=== PATIENT | female | born 1935 | race Caucasian/White ===

== ENCOUNTER → 2017-03-05 | Outpatient (CLI) | payer OTHER ==
[~2017-03-05] VITALS: Ht 152.4 cm; Wt 82.6 kg
[~2017-03-05] MED LIST: ACIPHEX 20 MG T20 MG PO; AMITRIPTYLINE H25 M2 PO; B-122500 MCG SL; CHLORTHALIDONE25 MG PO; CO Q-10100 MG PO; DELZICOL400 M1 PO; K-DUR10 MEQ PO; LEVOTHYROXIN0.125 M1 PO; LIPITOR10 MG PO; MAG6464 MG PO; PREMPRO 0.3 MG1 EACH PO; PROBIOTIC1 EAC1 PO; TELMISARTAN80 MG PO; TOPROL XL25 MG PO; VENLAFAXIN75 MG/1 T2 PO; VITAMIN D2000 UNIT PO
--- NOTE | ~2017-03-05 | HPC ---
[facility] [address] [place] [address] PAIN MANAGEMENT CONSULTATION Name: TODD FAJARDO [id number] Admission: 03/05/17 Attend Phys: Trevor Russell MD Discharge: Date of : 35 Report #: [id number] THIS REPORT FOR: //name// CC: Foster Russell DATE OF SERVICE: 03/05/2017 DAET OF REGISTRATION: 03/05/2017 CHIEF COMPLAINT: Low back pain with numbness and weakness into both legs. The patient is a natalia 81-year-old who I last saw in 2010. It has been 6 years since she has had to return to the pain clinic with back and leg pain. She had a series of 3 epidural injections performed in 2010, although they were spaced by about 4-6 weeks. She had improvement with that and has returned today hoping for some improvement in her pain. Pain has been developing over the last several months to level that is so bad that she has difficulty standing and walking distance. She can go to the grocery store but has to lean against the cart. She finds that she is fatigued with simple home activities such as sweeping the floor with the broom and has to go lay down. Pain is continuous, steady, cramping and aching much within her back, which she describes the back fatigue, but then the pain and the sensations radiate into her leg with weakness, tingling, and numbness. She has documented spinal stenosis from MRI involving lower lumbar levels L4-L5 as well as lumbar spondylosis typical of age also at L4-L5, L5-S1. She has a combination of both radicular mechanical features to her pain. MEDICATIONS: Amitriptyline, atorvastatin, chlorthalidone, metoprolol, telmisartan, venlafaxine, potassium, cholecalciferol, Co Q10, cyanocobalamin, estrogen, magnesium, mesalamine, Aciphex, levothyroxine. ALLERGIES: CODEINE. PAST MEDICAL HISTORY: Surgeries include tonsillectomy, appendectomy and hemorrhoidectomy. She had a hysterectomy, cholecystectomy, and thyroid cancer removed many years ago. She recently had a Mohs surgery for skin cancer on the scalp. She has had basal cells and other skin cancers removed several times in the last 5-10 years. Medical conditions include hypertension. She recently underwent a stress echo, but has not heard any results from the test yet, assuming them to be favorable. She has a history [place] [address] PAIN MANAGEMENT CONSULTATION Name: TODD FAJARDO [facility] [id number] Admission: 03/05/17 Attend Phys: Trevor Russell MD Discharge: Date of : 35 Report #: [id number] She suffers from arthritis which also causes pain. 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 SOCIAL HISTORY: She is . Her is the waiting room. She did not want him to come back. 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 She denies use of tobacco and alcohol. REVIEW OF SYSTEMS: Completed by the patient and she has multiple positive answers which we discussed in detail. She has some shortness of breath, which is being evaluated by both cardiac and potentially pulmonary. She has nocturia at night. She complains of some recent memory loss, confusion, although from the details she remembered from her visit in 2010. It is not immediately evident. PHYSICAL EXAMINATION: She is a pleasant 81-year-old. She was able to give a good clear and concise history to me today. Her vital signs are blood pressure 109/57, heart rate 82, respirations 16. BMI is 35.5. She is able to independently move from sitting to standing position and ambulate without much difficulty. Standing, complains of some pain, numbness, tingling and weakness into the legs. She has minimal pain with forward flexion. Back extension reproduces some mild pain in the lumbosacral spine consistent with spondylitic changes. No tenderness over the sacroiliac joint. Straight leg raising does not reproduce pain, but it does exacerbate some of the symptoms of tingling and numbness into her legs. Focal weakness is not noted, but generalized weakness throughout the lower extremities is present. X-rays are not available for me to review at this time, but I have been able to review the record which describes lumbosacral spinal stenosis as a cause of her symptoms of radiculopathy involving the lower lumbar regions L4-L5, L5-S1. IMPRESSION: Lumbar radiculopathy and axial low back pain with spondylosis related to spinal stenosis and spondylitic changes. RECOMMENDATIONS: She has responded favorably in the past to an epidural steroid injection. I would recommend that we proceed first with that test today. We talked about medication. She would like to avoid additional medications. Active physical therapy and exercise is important and we reviewed that as well today. Preauthorization is required. I plan to see her back in the clinic in 1 week for lumbar epidural steroid injection. [facility] [address] [place] [address] PAIN MANAGEMENT CONSULTATION Name: TODD FAJARDO Room #: REG CLI [facility].#: [id number] Admission: 03/05/17 Attend Phys: Trevor Russell MD Discharge: Date of : 35 Report #: [id number] Time spent with the patient in the clinic in examination and counseling 30 minutes from 0902 to 0935. By: [id number] Trevor Russell MD /nt
[2017-03-05 09:01] VITALS: BP 109/57
== END ==
LOC: PAIN 06:59
DX: M47.26 Other spondylosis with radiculopathy, lumbar region (principal); M48.06 Spinal stenosis, lumbar region; R53.1 Weakness; R20.0 Anesthesia of skin

== ENCOUNTER → 2017-03-12 | Outpatient (CLI) | payer OTHER ==
[~2017-03-12] VITALS: Ht 152.4 cm; Wt 83.5 kg
--- NOTE | ~2017-03-12 | H ---
[facility] [place] [address] HISTORY AND PHYSICAL Name: TODD FAJARDO [facility] [id number] Admission: 03/12/17 Attend Phys: Trevor Russell MD Discharge: Date of : 35 Report #: [id number] THIS REPORT FOR: //name// CC: Foster Russell DATE OF REGISTERATION: 03/12/2017. Followup visit for chronic recurrent low back pain with radiculopathy. HISTORY OF PRESENT ILLNESS: The patient returns to pain clinic today for an epidural injection. She was last seen for this treatment in 2010, responding nicely to a series of 3 injections. I saw her on evaluation on 03/05/2017, we sought preauthorization from insurance and we have received it, so we will proceed today with an injection for spinal stenosis. She has stenosis involving levels L4-L5, spondylosis typical of age at L4-L5 and L5-S1. As noted last visit, she has combinations of both radicular and mechanical pain. PHYSICAL EXAMINATION: Remains unchanged from 1 week ago. Her blood pressure is 109/61, heart rate 90, respirations 14. She moves from sitting to standing position, walks with mildly antalgic features. She has pain with back extension, reproducing lumbosacral pain with spondylitic features and there is some numbness and tingling in the legs with straight leg raising. IMPRESSION: Lumbar spondylosis and spinal stenosis L4-L5 with features of spondylosis and radiculopathy, L4-L5 and L5-S1. PROCEDURE: Epidural steroid injection under fluoroscopic guidance. DESCRIPTION OF PROCEDURE: She was taken to the fluoroscopic suite for treatment, placed prone, skin prepped with ChloraPrep. Skin anesthetized over L4-L5 and a 20-gauge Tuohy epidural needle advanced into the epidural space ____ first attempt with loss of resistance. No blood or CSF aspirated. 1 mL of Omnipaque injected and spread of dye observed nicely into the epidural space followed by 2 mL of 0.5% lidocaine mixed with 80 mg triamcinolone. She tolerated the procedure well and was observed for 45 minutes and discharged. Followup visit planned in the pain clinic on an as needed basis for repeat injection. By: [id number] Trevor Russell MD /nt
[2017-03-12 08:19] VITALS: BP 109/61
== END | disposition home or self-care (01) ==
LOC: PAIN 07:03
DX: M47.896 Other spondylosis, lumbar region (principal); M48.06 Spinal stenosis, lumbar region; G89.29 Other chronic pain; Z88.6 Allergy status to analgesic agent; Z79.899 Other long term (current) drug therapy; Z98.890 Other specified postprocedural states

== ENCOUNTER → 2017-04-02 | Outpatient (CLI) | payer OTHER ==
[~2017-04-02] VITALS: Ht 152.4 cm; Wt 84.7 kg
--- NOTE | ~2017-04-02 | HPC ---
[facility] [place] [address] PAIN MANAGEMENT CONSULTATION Name: TODD FAJARDO [id number] Admission: 04/02/17 Attend Phys: Trevor Russell MD Discharge: Date of : 35 Report #: [id number] THIS REPORT FOR: //name// CC: LAZARO Russell DATE OF SERVICE: 04/02/2017 DATE OF REGISTRATION: 04/02/2017 Followup visit for lumbar radiculopathy. The patient returns to pain clinic today and reports that following her epidural injection, she had nearly 2 weeks of 100% pain relief. Pain is gradually returning and she is about 50% better. She continues on ibuprofen, ultimately with Celebrex and feels that she has seen substantial improvement with her injection. She is still limited; however, by pain and it varies anywhere from a 3 at its best to a 6. Pain is described as low back radiating into bilateral legs. She has less foot tenderness, less fatigue and aching. It is still difficult for her to perform many activities of daily living that involves weightbearing. I reviewed her x-rays of spinal stenosis and spondylosis. Intermittent epidural injections may be helpful. A second injection might provide longer relief and I think that she is an ideal candidate having had 100% pain relief in 50% sustained improvement. Repeat another injection today. I would not proceed automatically with the third injection however. Unfortunately, she had [employer] insurance. This appropriate approach will need to be preauthorized. I have discussed this with the patient. She was discharged and we will see her back in the pain clinic in 1 week once we have received preauthorization by Ivonne. IMPRESSION: Lumbar spondylosis with spinal stenosis L4-L5 with radiculopathy L4, L5, S1 bilateral. Excellent response to lumbar epidural steroid injection. By: [id number] Trevor Russell MD /nt
[2017-04-02 10:15] VITALS: BP 138/63
== END | disposition home or self-care (01) ==
LOC: PAIN 07:11
DX: M47.26 Other spondylosis with radiculopathy, lumbar region (principal); M48.06 Spinal stenosis, lumbar region; Z98.890 Other specified postprocedural states; G89.29 Other chronic pain; Z88.6 Allergy status to analgesic agent; Z79.899 Other long term (current) drug therapy

== ENCOUNTER → 2017-04-23 | Outpatient (CLI) | payer OTHER ==
[~2017-04-23] VITALS: Ht 152.4 cm; Wt 84.1 kg
--- NOTE | ~2017-04-23 | HPC ---
[facility] [address] [place] [address] PAIN MANAGEMENT CONSULTATION Name: TODD FAJARDO Room #: REG CLP[facility].#: [id number] Admission: 04/23/17 Attend Phys: Trevor Russell MD Discharge: Date of : 35 Report #: [id number] THIS REPORT FOR: //name// CC: Foster Russell DATE OF SERVICE: 04/23/2017 Followup visit for low back pain with radiculopathy. The patient returns to pain clinic today with her son. We discussed her epidural response and recurrence of her pain. She still has some improvement after her initial injection, but the pain is now coming back. We had an extensive discussion today about epidural injections, how they might be utilized to provide pain relief over long-term using the lowest number of injections possible staying within guidelines established by the Medicare. I believe that her last injection was well placed and appropriate. She is now about 2 months out from that injection with some pain returning. I have agreed that I will repeat another injection for her today with hopes of providing additional skilled nursing relief. Other options would include medication management. There is some discussion in the literature that we should do more implantation of devices, but I think that is silly if we can give her good relief with an occasional epidural injection. She has pain related to lumbar spondylosis and severe spinal stenosis at L4-L5, this causes radiculopathy bilaterally at L4, L5, S1. Last time, her pain seemed to be worse on the right, today pain is more on the left. PHYSICAL EXAMINATION: She is a natalia 81-year-old who appears much younger than her stated age. She has good movements from sitting to standing, but walks with a slightly antalgic features to her gait. She has straight leg raising discomfort bilaterally, it is worse today on the left. Mostly tingling sensation with numbness. IMPRESSION: Lumbar radiculopathy, improved by epidural injections. She has spinal stenosis and spondylitic changes. RECOMMENDATIONS: Repeat epidural steroid injection, left paramedian translaminar approach. DESCRIPTION OF PROCEDURE: The patient was taken to the fluoroscopic suite. She was placed prone, skin prepped with ChloraPrep. Skin was anesthetized to the left of midline and a 20-gauge Tuohy epidural needle advanced into the epidural space. An injection of Omnipaque demonstrated spread mostly to the right. Because of this, I repositioned the needle until we had an excellent left-sided epidurogram. It was then followed by 3 mL of 0.5% lidocaine mixed with [address] [address] PAIN MANAGEMENT CONSULTATION Name: TODD FAJARDO Room #: REG [facility].#: [id number] Admission: 04/23/17 Attend Phys: Trevor Russell MD Discharge: Date of : 35 Report #: [id number] triamcinolone. She tolerated the procedure well and was observed for 45 minutes and discharged. Follow up visit as needed. By: [id number] [id number] Trevor Russell MD /keyon
[2017-04-23 12:57] VITALS: BP 111/66
== END | disposition home or self-care (01) ==
LOC: PAIN 06:59
DX: M47.26 Other spondylosis with radiculopathy, lumbar region (principal); M48.061 Spinal stenosis, lumbar region without neurogenic claudication; Z98.890 Other specified postprocedural states; Z88.6 Allergy status to analgesic agent